=== PATIENT | female | born 1965 | race Caucasian/White ===

== ENCOUNTER → 2018-06-30 11:21 | Outpatient (CLI) | payer OTHER, SELFPAY ==
--- NOTE | 2018-06-30 11:23 | DI.RAD.S_ITS ---
PROCEDURE: XR ANKLE LT MIN 3V INDICATIONS: L ankle pain TECHNIQUE: 3 views of the ankle were acquired. COMPARISON: [facility], , ANKLE 3 VIEWS LEFT, 04/06/2016, 17:24. FINDINGS: Bones: No definite fractures or dislocations but there is mild soft tissue swelling laterally and previously present slight irregularity at the inferior tip of the lateral malleolus is present to the degree that a small avulsion fragment in this area could not be accurately identified acutely. Ankle mortise is normally aligned. No suspicious bony lesions. Soft tissues: No tibiotalar joint effusion. Achilles tendon appears normal. Mild soft tissue swelling laterally. IMPRESSION: No definite cortical fracture found, slight irregularity at the inferior tip of the lateral malleolus potentially a site of acute traction injury. Mild overlying soft tissue swelling laterally. Followup by delayed plain films may be warranted depending on clinical status if unusual symptoms persist. Dictated by: Mario Wells M.D. on 06/30/2018 at 11:55 Approved by: Mario Wells M.D. on 06/30/2018 at 11:58
== END ==
PROVIDERS: Visit Provider Physician Assistant
DX: M25.572 Pain in left ankle and joints of left foot (principal)
CPT/HCPCS: 73610